=== PATIENT | male | born 1950 | race African-American/Black ===

== ENCOUNTER 2017-04-16 10:34 | Emergency (ER) | payer BC ==
[2017-04-16 10:52] VITALS: BP 178/99
--- NOTE | 2017-04-16 11:36 | UC ---
Nata Rodriguez Thomas, scribed for Charline Duenas MD on 04/16/17 at 1119 . Eye Complaint HPI - HPI Summary HPI Summary: The pt is a 66 y/o M presenting to [facility] c/o a lump on his R upper eyelid that has been there for the last week. Over last week the lump has decreased in size. He has treated the lump with hot compress. Pt additionally c/o drainage ( in AM). Pt denies vision changes, but states notices lump in visual field. Pt denies any pain, fever, chills, nausea, vomiting, and photophobia. He does not wear contacts, glasses, and denies any eye trauma. no h/o similar. Pt has DM. PMHx: NIDDM, HTN, CAD, and HLD. PSHx: R hip replacement, bilateral knee replacement, cardiac stents, cataract L eye. SHx: heavy smoker (3 cigars/day and cigarettes), no illicit drugs, no alcohol. FHx: HTN, DM, GERD. He did not take his blood pressure medication today. He is on ASA. Patients medication reviewed this visit. - History of Current Complaint Chief Complaint: UCEy Stated Complaint: EYE ISSUE Time Seen by Provider: 04/16/17 11:13 Hx Obtained From: Patient Onset/Duration: Lasting Weeks - onset last week, Still Present Timing: Constant Pain Intensity: 0 Pain Scale Used: 0-10 Numeric Location of Injury: Eye Lid (upper) - Right Aggravating Factor(s): Nothing Alleviating Factor(s): Other - POS: hot compress Associated Signs And Symptoms: Positive: Drainage (Clear), Drainage (Purulent), Vision Impairment Right. Negative: Photophobia, Fever - Allergies/Home Medications Allergies/Adverse Reactions: Allergies Allergy/AdvReac Type Severity Reaction Status Date / Time No Known Allergies Allergy Verified 04/16/17 10:52 PMH/Surg Hx/FS Hx/Imm Hx Previously Healthy: No Endocrine History: Diabetes Cardiovascular History: Cardiac Disease - CAD, Hypertension, Other Other Cardiovascular History: HLD Other History Of: Anticoagulant Therapy - cardiac stents - Surgical History Surgical History: Yes Surgery Procedure, Year, and Place: RIGHT HIP REPLACEMENT, BILATERAL KNEE X2, CATARACT LEFT EYE. cardiac stents - Family History Known Family History: Positive: Hypertension, Diabetes, Other - GERD - Social History Occupation: Retired Lives: With Family Alcohol Use: None Substance Use Type: None Smoking Status (MU): Heavy Every Day Tobacco Smoker Type: Cigarettes, Cigars Amount Used/How Often: 3 CIGARS/DAY and cigaretts Have You Smoked in the Last Year: Yes Household Exposure Type: Cigarettes - Immunization History Most Recent Influenza Vaccination: LAST FALL Most Recent Tetanus Shot: UNKNOWN BUT UP TO DATE Most Recent Pneumonia Vaccination: NONE Review of Systems Constitutional: Negative Skin: Negative Eyes: Drainage, Other - POS: lump on R upper eyelid (onset last week), occlusion of vision (minor, to R eye); NEG: any pain, changes to vision, photophobia ENT: Negative Respiratory: Negative Cardiovascular: Negative Gastrointestinal: Negative Genitourinary: Negative Motor: Negative Neurovascular: Negative Musculoskeletal: Negative Neurological: Negative Psychological: Negative All Other Systems Reviewed And Are Negative: Yes Physical Exam Triage Information Reviewed: Yes Completion Of Physical Exam Limited Due To: Altered Mental Status Appearance: Well-Appearing, No Pain Distress, Well-Nourished Vital Signs: Initial Vital Signs Temp 98.7 F 04/16/17 10:45 Pulse 73 04/16/17 10:45 Resp 16 04/16/17 10:45 BP 178/99 04/16/17 10:45 Pulse Ox 100 04/16/17 10:45 Vital Signs Reviewed: Yes Eyes: Positive: Other: - COMFORT, EOM intact and full Right upper, lateral lid - pt with inflammed, focal area at base of eyeliash c/w hordeolum. No photophobia. No injection ENT: Positive: Hearing grossly normal, Pharynx normal, Nasal congestion, Nasal drainage, TMs normal, TM bulging Neck exam: Normal Neck: Positive: Supple, Nontender Respiratory Exam: Normal Respiratory: Positive: Chest non-tender, Lungs clear, Normal breath sounds Cardiovascular Exam: Normal Cardiovascular: Positive: RRR, No Murmur Musculoskeletal Exam: Normal Neurological Exam: Normal Neurological: Positive: Alert Psychological Exam: Normal Skin Exam: Normal Eye Complaint Course/Dx - Course Course Of Treatment: The patient is a 66 y/o M presenting to [facility] complaining of a lump on his R upper eyelid that began last week. He was diagnosed with a hordeolum. frequent warm soaks. polytrim drops. ophtho referral given as needed and return symptoms discussed. Blood pressure noted and patient informed to follow up with PCP. - Differential Dx/Diagnosis Provider Diagnoses: hordeolum Discharge - Discharge Plan Condition: Stable Disposition: HOME Prescriptions: Polymyx/Trimethoprim OPTH* [Polytrim OPHTH*] 1 drop RIGHT EYE TID #1 btl Patient Education Materials: Cecelia (ED) Referrals: Nohemi Reyes MD [Primary Care Provider] - Genaro Quezada MD [Medical Doctor] - Additional Instructions: Apply warm, wet soaks to your right eye 3 times a day for 5 days Use eye drops 3 times a day for 5 days Avoid picking, squeezing wound If your wound persists for more than 7 days, you should contact the biazzi nitrator operator to schedule a follow-up appointment If you have pain, fevers, increased size or ANY other concerns, contact the eye doctor to schedule a follow-up The documentation as recorded by the Nata fitzgerald Thomas accurately reflects the service I personally performed and the decisions made by me, Charline Duenas MD.
== END 2017-04-16 11:35 | disposition home or self-care (01) ==
LOC: UCEAST 10:34
DX: H00.011 Hordeolum externum right upper eyelid (principal); E11.9 Type 2 diabetes mellitus without complications; I25.10 Atherosclerotic heart disease of native coronary artery without angina pectoris; I10 Essential (primary) hypertension; Z95.5 Presence of coronary angioplasty implant and graft; Z79.01 Long term (current) use of anticoagulants; Z96.641 Presence of right artificial hip joint; Z96.653 Presence of artificial knee joint, bilateral; Z98.42 Cataract extraction status, left eye; F17.210 Nicotine dependence, cigarettes, uncomplicated
CPT/HCPCS: 99212; G0463

== ENCOUNTER 2017-11-04 10:02 | Emergency (ER) | payer BC ==
[2017-11-04 10:48] VITALS: BP 181/91
--- NOTE | 2017-11-04 11:35 | RAD ---
Indication: Left knee pain after fall. 4 views of left knee demonstrates chondrocalcinosis. There is suggestion of an intra-articular loose body noted. No fracture is noted. Degenerative changes of the medial and lateral compartment as well as the patellofemoral joint is noted. There is a suprapatellar effusion noted. IMPRESSION: NO DEFINITE FRACTURE IS NOTED ALTHOUGH THERE IS CHONDROCALCINOSIS, DEGENERATIVE CHANGES OF THE MEDIAL AND LATERAL COMPARTMENTS OF THE KNEE WELL THE PATELLOFEMORAL JOINT WITH SUGGESTION OF LOOSE BODIES WITHIN THE JOINT SPACE.
--- NOTE | 2017-11-04 11:35 | RAD ---
Indication: Left lower leg injury. 2 views of left lower leg demonstrates no fracture. No other bone or joint abnormality is noted. IMPRESSION: No fracture of the left lower leg is noted.
--- NOTE | 2017-11-04 11:35 | RAD ---
INDICATION: Left ankle injury. TECHNIQUE: 3 views of the left ankle were obtained. FINDINGS: There is mild diffuse soft tissue swelling. The bones are normal alignment. No acute fracture is seen. There is relative lucency in the medial talus most consistent with a large chronic osteochondral lesion. Evaluate. IMPRESSION: 1. SOFT TISSUE SWELLING, NO ACUTE FRACTURE IS SEEN. 2. LARGE CHRONIC OSTEOCHONDRAL LESION MEDIAL TALUS.
--- NOTE | 2017-11-04 11:36 | RAD ---
Indication: Left foot injury. 3 views of left foot are reviewed. There is no fracture. There is degenerative changes of the first metatarsophalangeal joint. No fracture is identified. IMPRESSION: No fracture of the left foot is noted.
[2017-11-04] MEDS ORDERED: HYDROcodone/ACETAMIN 5-325 MG* 1 TAB PO ONE (11:53)
--- NOTE | 2017-11-04 12:00 | UC ---
Knee Pain HPI - HPI Summary HPI Summary: 66 yo male slipped on wet grass yesterday c/o left knee pain as well as left ankle pain and foot pain 9/10 pain at rest unable to bear wt hx left knee reconstruction 50 yrs ago - History of Current Complaint Chief Complaint: UCLowerExtremity Stated Complaint: ANKLE FOOT AND KNEE INJURY Time Seen by Provider: 11/04/17 11:39 Hx Obtained From: Patient Onset/Duration: Sudden Onset Severity Initially: Severe Severity Currently: Severe Pain Intensity: 10 Pain Scale Used: 0-10 Numeric Character: Aching, Throbbing Aggravating Factor(s): Movement, Weight Bearing Alleviating Factor(s): Nothing Able to Bear Weight: No - Allergies/Home Medications Allergies/Adverse Reactions: Allergies Allergy/AdvReac Type Severity Reaction Status Date / Time No Known Allergies Allergy Verified 11/04/17 10:41 Home Medications: Home Medications Aspirin/Caffeine [Oscar Back-Body Caplet] 2 tab PO ONCE PRN 11/04/17 [History Confirmed 11/04/17] Lisinopril [Lisinopril 2.5 MG-] 1 tab PO DAILY 11/04/17 [History Confirmed 11/04] PMH/Surg Hx/FS Hx/Imm Hx Endocrine History: Diabetes Cardiovascular History: Cardiac Disease, Hypertension Other History Of: Anticoagulant Therapy - cardiac stents - Surgical History Surgical History: Yes Surgery Procedure, Year, and Place: RIGHT HIP REPLACEMENT, BILATERAL KNEE X2, CATARACT LEFT EYE. cardiac stents - Family History Known Family History: Positive: Hypertension, Diabetes, Other - GERD - Social History Alcohol Use: None Substance Use Type: None Smoking Status (MU): Heavy Every Day Tobacco Smoker Type: Cigarettes, Cigars Amount Used/How Often: 3 CIGARS/DAY and cigaretts Have You Smoked in the Last Year: Yes Household Exposure Type: Cigarettes - Immunization History Most Recent Influenza Vaccination: LAST FALL Most Recent Tetanus Shot: UNKNOWN BUT UP TO DATE Most Recent Pneumonia Vaccination: NONE Review of Systems Constitutional: Negative Skin: Negative Eyes: Negative ENT: Negative Respiratory: Negative Cardiovascular: Negative Gastrointestinal: Negative Genitourinary: Negative Motor: Negative Neurovascular: Negative Musculoskeletal: Arthralgia Neurological: Negative Psychological: Negative Is Patient Immunocompromised?: No All Other Systems Reviewed And Are Negative: Yes Physical Exam Triage Information Reviewed: Yes Appearance: Well-Appearing, No Pain Distress, Well-Nourished Vital Signs: Initial Vital Signs Temp 98.8 F 11/04/17 10:44 Pulse 82 11/04/17 10:44 Resp 16 11/04/17 10:44 BP 181/91 11/04/17 10:44 Pulse Ox 99 11/04/17 10:44 Vital Signs Reviewed: Yes Eyes: Positive: Conjunctiva Clear ENT: Positive: Hearing grossly normal, Uvula midline. Negative: Nasal congestion, Nasal drainage, Trismus, Muffled voice Neck: Positive: Supple, Nontender, No Lymphadenopathy Respiratory: Positive: Lungs clear, Normal breath sounds, No respiratory distress Cardiovascular: Positive: RRR Musculoskeletal: Positive: Other: - see image Neurological Exam: Normal Neurological: Positive: Alert Psychological Exam: Normal Skin Exam: Normal Diagnostics - Radiology No standard instances Xray Interpretation: Positive (See Comments) - LARGE CHRONIC OSTEOCHONDRAL LESION MEDIAL TALUS IMPRESSION: NO DEFINITE FRACTURE IS NOTED ALTHOUGH THERE IS CHONDROCALCINOSIS, DEGENERATIVE CHANGES OF THE MEDIAL AND LATERAL COMPARTMENTS OF THE KNEE WELL THE PATELLOFEMORAL JOINT WITH SUGGESTION OF LOOSE BODIES WITHIN THE JOINT [facility] Radiology Interpretation Completed By: Radiologist Knee Pain Course/Dx - Course Course Of Treatment: Reference #: [id number] - Differential Dx/Diagnosis Provider Diagnoses: left knee injury (suspect internal derrangement/loose bodies ). left ankle sprain with chronic large left talar osteochondral lesion Discharge - Discharge Plan Condition: Stable Disposition: HOME Patient Education Materials: Knee Pain (ED), Ankle Sprain (ED), Crutch Instructions (ED) Referrals: [facility] [Outside] - As Soon As Possible Additional Instructions: you have evidence of a chronic osteochondral lesion left ankle probably the result of your many ankle injuries you have fluid in you left knee joint you may have torn ligament you appear to have loose bodies (pieces of calcium) floating in your joint I suggest follow up for further evaluation which may include additional imaging rest ice twice daily knee immobilizer Images Front/Back of Body, Lg ([place]): 1 - tender medially/efffusion/guarding...gait not tested 2 - tender medial and laterally 3 - tender laterally
== END 2017-11-04 12:34 | disposition home or self-care (01) ==
LOC: UCEAST 10:02
DX: S89.92XA Unspecified injury of left lower leg, initial encounter (principal); S93.402A Sprain of unspecified ligament of left ankle, initial encounter; W00.0XXA Fall on same level due to ice and snow, initial encounter; Y93.9 Activity, unspecified; Y92.9 Unspecified place or not applicable; M93.272 Osteochondritis dissecans, left ankle and joints of left foot; E11.9 Type 2 diabetes mellitus without complications; I11.9 Hypertensive heart disease without heart failure; Z95.5 Presence of coronary angioplasty implant and graft; Z79.01 Long term (current) use of anticoagulants; Z96.641 Presence of right artificial hip joint; Z96.653 Presence of artificial knee joint, bilateral; Z98.42 Cataract extraction status, left eye; F17.210 Nicotine dependence, cigarettes, uncomplicated
CPT/HCPCS: 99212; G0463

== ENCOUNTER 2018-02-28 03:22 | Emergency (ER) | payer BC ==
[2018-02-28] MEDS ORDERED: Sodium Bicarbonate 8.4%* 50 ML SYRINGE ONE ×2 (03:23)
[2018-02-28] MEDS ORDERED: EPINEPHrine SYR 0.1 MG/ML* (1:10,000) SYRINGE ONE ×2 (03:23)
[2018-02-28] MEDS ORDERED: Calcium CHLORIDE 10% SYRINGE* 1 GM/10 ML ONE ×2 (03:23→03:28)
[2018-02-28 03:38] VITALS: BP 00/00
--- NOTE | 2018-03-04 14:55 | ED ---
Progress - Progress Note Progress Note: Asked by Dr. Castillo, director of hospitalists to complete certificate on behalf of Dr. Callaway, who is not available to complete. Documentation was reviewed with Dr. aCstillo, including record showing STEMI at [facility] in 2016. Cause of deemed natural. certificate completed, with Dr. Castillo certifying the on my behalf. Noemi Beard MD Manager [employer] for [employer] [facility] Emergency Department Course/Dx - Diagnoses Provider Diagnoses: Cardiac arrest Discharge - Sign-Out/Discharge Documenting (check all that apply): Discharge/Admit/Transfer - - Discharge Plan Condition: Disposition: Referrals: Nohemi Reyes MD [Primary Care Provider] - - Billing Disposition and Condition Condition: Disposition:
--- NOTE | 2018-03-17 11:06 | ED ---
Jeff Rodrgiuez Natalie, scribed for Ángel Callaway MD on 02/28/18 at 0406 . Cardiac Resuscitation - HPI Summary HPI Summary: The patient is a 67 y/o M BIBA to [facility] c/o witnessed cardiac arrest when EMS arrived to the pt's home. The pt's found him in bed "flailing" and not verbally responsive. When EMS arrived, the pt had agonal breathing, and there was no pulse found. CPR was started immediately. The pt fell in asystole rhythm at 02:55. The pt's blood pressure was 230 upon arrival and wasn't gazing, but then he became unconscious with gazing to the right, and as EMS reports " looking like he was having a seizure or stroke." It's also reported that he bite up his tongue. The pt was on the monitor for 27 minutes before arriving to the ED. Two epinephrines were administered POPCORN ATTENDANT, and four were administered in the ED. Calcium carbonates and bicarbs were also administered in the ED. Compressions were done the entire time without a pulse being found. Time of was 03:35. He has no cardiac history, but he has hx of diabetes. - History of Current Complaint Stated Complaint: ABC ALERT Hx Obtained From: Family/Project Director - , EMS Hx From Patient Unobtainable Due To: Extremis - pt is in cardiac arrest upon arrival Onset/Duration: Minutes/Hours: - 30 minutes POPCORN ATTENDANT Arrest Witnessed: Yes Down-time Before Basic Life Support Initiated: Down-time before BLS initiated: - CPR initiated immediately - Prehospital Findings Circulation/Rhythm: Asystole Disability/Neurologic: Unresponsive - Prehospital Intervention Circulation/Rhythm: Chest Compressions, Epinephrine: - Past Medical History Past Medical History: Other: - no past cardiac history, diabetic history - Family History Family History: Unobtainable Due to Extremis - Review of Systems Review of Systems: Other: - per EMS/: unresponsive verbally, "flailing", seizure-like movements Diagnostics - Vital Signs Vital Signs Temp Pulse Resp BP Pulse Ox 02/28/18 03:30 -17.7 C 0 0 00/00 99 - Laboratory Lab Results: Lab Results 02/28/18 Range/Units 03:34 POC Glucose (mg/dL) 215 H (70-100) mg/dL Lab Statement: Any lab studies that have been ordered have been reviewed, and results considered in the medical decision making process. Cardiac Resus. Course/Dx - Cardiac Resuscitation Differential Dx/HPI/PQRI: Acute Myocardial Infarct, Asystole, Cardiac Rhythm Disturbance, Drug Overdose, Pulmonary Edema, Pulseless Electrical Activity, Respiratory Failure, Sudden - Diagnoses Provider Diagnoses: Cardiac arrest During the Visit The Following Alert/Code Occurred: ABC Alert - Critical Care Time Critical Care Time: 30-74 min Discharge - Sign-Out/Discharge Documenting (check all that apply): Discharge/Admit/Transfer - Discharge Plan Condition: Referrals: Nohemi Reyes MD [Primary Care Provider] - - Billing Disposition and Condition Condition: The documentation as recorded by the Jeff fitzgerald Natalie accurately reflects the service I personally performed and the decisions made by , Ángel Callaway MD.
== END 2018-02-28 03:35 | disposition expired ==
LOC: ED 03:22 → MERGE 03:22 → ED 03:35
DX: I46.9 Cardiac arrest, cause unspecified (principal)
CPT/HCPCS: 96372; 99285; J0171